=== PATIENT | female | born 1975 | race Caucasian/White ===

== ENCOUNTER → 2017-04-28 | Outpatient (CLI) | payer OTHER ==
[~2017-04-28] MED LIST: BUDE6HFA INH; CETI5 PO; CPAP; OMEP20ER PO; Percocet 5-3251 EACH PO; SUCR1SU PO; Zofran4 MG PO
== END | disposition home or self-care (01) ==
LOC: LAB SHORT 07:12 → PLD 07:12
DX: N84.1 Polyp of cervix uteri (principal)
CPT/HCPCS: 88305

== ENCOUNTER → 2017-04-28 | Outpatient (CLI) | payer OTHER ==
[2017-05-02 12:23] LABS: HPV Genotype 16 Not Detected (NOTDET); HPV Genotype 18 Not Detected (NOTDET)
[2017-05-03 15:10] LABS: HPV High Risk Other Not Detected (NOTDET)
== END ==
LOC: LAB 12:09
PROVIDERS: Obstetrics & Gynecology
DX: Z01.419 Encounter for gynecological examination (general) (routine) without abnormal findings (principal)
CPT/HCPCS: 87624; G0123

== ENCOUNTER → 2022-11-24 | Outpatient (CLI) | payer OTHER ==
[2022-11-24 14:39] LABS: Calcium, Urine 13.9 mg/dL (< 17.5); Calcium, Urine Calculation 291.9 mg/24hrs (42.0-353.0)
== END ==
LOC: LAB SHORT 09:30 → LAB 09:30
PROVIDERS: Internal Medicine Endocrinology, Diabetes & Metabolism
DX: N25.81 Secondary hyperparathyroidism of renal origin (principal)
CPT/HCPCS: 81050; 82340